=== PATIENT | male | born 1975 | race Two or more races ===

== ENCOUNTER 2022-02-11 05:43 | Day surgery (SDC) | payer OTHER ==
[~2022-02-11] VITALS: Ht 172.7 cm; Wt 84.4 kg
[2022-02-11] MEDS ORDERED: PERCOCET 5-3251 EACH PO (08:19)
[2022-02-11] MEDS ORDERED: PEPCID AC20 MG PO (08:20)
[2022-02-11] MEDS ORDERED: DICLOFENAC SODI75 MG PO (08:20)
== END 2022-02-11 10:15 | disposition home or self-care (01) ==
LOC: CIR.AMB 05:43
PROVIDERS: ATTEND Surgery
DX: K35.80 Unspecified acute appendicitis (principal); K42.9 Umbilical hernia without obstruction or gangrene; R10.31 Right lower quadrant pain; Z20.822 Contact with and (suspected) exposure to COVID-19